=== PATIENT | male | born 1965 | race Caucasian/White ===

== ENCOUNTER 2022-06-16 11:08 | Outpatient (CLI) | payer OTHER | END 2022-06-16 19:11 | disposition home or self-care (01) | LOC: SNM 11:08 | PROVIDERS: ATTEND Urology Pediatric Urology | DX: C61 Malignant neoplasm of prostate (principal) | CPT/HCPCS: 78306; A9503 ==

== ENCOUNTER 2022-10-18 12:16 | Outpatient (CLI) | payer OTHER, MEDICAID ==
[2022-10-18] MEDS ORDERED: CYSTOGRAFIN 300 ML INFUS..BTL UR ONE (14:03)
== END 2022-10-18 20:43 | disposition home or self-care (01) ==
LOC: SRD 12:16
PROVIDERS: ATTEND Urology
DX: C61 Malignant neoplasm of prostate (principal)
CPT/HCPCS: 74430; 51600; Q9958